=== PATIENT | male | born 1960 | race Caucasian/White ===

== ENCOUNTER 2017-12-06 12:35 | Inpatient (IN) | payer MEDICARE ==
[2017-12-06 13:40] LABS: ADD MAN DIFF? NO
[2017-12-06 13:43] LABS: BASO % 1 % (0-3); EOS # 0.4 x10^3/uL (0.0-0.7); EOS % 6 % (0-3); HEMATOCRIT 28.7 % (39.0-53.0); HEMOGLOBIN 9.1 g/dL (13.0-17.5); LYMPH # 1.7 x10^3/uL (1.0-4.8); LYMPH % 27 % (24-48); MEAN CORPUSCULAR HEMOGLOBIN 24 pg (25-35); MEAN CORPUSCULAR HGB CONC 32 g/dL (31-37); MEAN CORPUSCULAR VOLUME 74 fL (79-100); MONO # 0.6 x10^3/uL (0.0-1.1); MONO % 10 % (0-9); NEUT # 3.8 x10^3uL (1.8-7.7); NEUT % 58 % (31-73); PLATELET COUNT 423 x10^3/uL (140-400); RED BLOOD COUNT 3.87 x10^6/uL (4.30-5.70); RED CELL DISTRIBUTION WIDTH 20.8 % (11.5-14.5); WHITE BLOOD COUNT 6.6 x10^3/uL (4.0-11.0)
[2017-12-06] MEDS ORDERED: 0.9 % SODIUM CHLORIDE 10 ML DISP.SYRIN. IV (13:45)
[2017-12-06 13:50] LABS: ANION GAP 6 (6-14); BLOOD UREA NITROGEN 17 mg/dL (8-26); CALCIUM 8.8 mg/dL (8.5-10.1); CARBON DIOXIDE 29 mmol/L (21-32); CHLORIDE 105 mmol/L (98-107); CREATININE 0.5 mg/dL (0.7-1.3); GFR 170.8; GLUCOSE 90 mg/dL (70-99); POTASSIUM 4.3 mmol/L (3.5-5.1); SODIUM 140 mmol/L (136-145)
[2017-12-06 13:56] LABS: ALBUMIN 2.6 g/dL (3.4-5.0); ALK PHOS 91 U/L (46-116); ALT (SGPT) 10 U/L (16-63); AST (SGOT) 22 U/L (15-37); C-REACTIVE PROTEIN 51.3 mg/L (0-3.3); DIRECT BILIRUBIN < 0.1 mg/dL (0.0-0.2); TOTAL BILIRUBIN 0.2 mg/dL (0.2-1.0); TOTAL PROTEIN 7.5 g/dL (6.4-8.2)
[2017-12-06] MEDS: IV NORMAL SALINE 1000ML BAG 1,000 ML IV ×2 (14:06→18:18)
[2017-12-06] MEDS: ONDANSETRON PF 4 MG/2 ML VIAL. IV (14:07)
[2017-12-06] MEDS: MORPHINE SULFATE 4 MG/ML DISP.SYRIN. IV/SQ ×2 (14:07→17:02)
[2017-12-06] MEDS: VANCOMYCIN 1GM IVPB FOR OMNI 250 ML IV (14:08)
[2017-12-06 15:02] LABS: SEDIMENTATION RATE 75 (0-15)
[2017-12-06] MEDS ORDERED: ONDANSETRON PF 4 MG/2 ML VIAL. IV (15:30)
[2017-12-06 16:47] LABS: PLT ESTIMATE ADEQUATE (ADEQUATE)
[2017-12-06 16:48] LABS: ANISOCYTOSIS MOD; HYPOCHROMIA MOD; MICROCYTOSIS MOD
[2017-12-06] MEDS: MORPHINE SULFATE 4 MG/ML DISP.SYRIN. IV ×2 (19:09→21:07)
[2017-12-06] MEDS ORDERED: SENNOSIDES 8.6 MG TABLET PO (22:00)
[2017-12-06] MEDS: TEMAZEPAM 15 MG CAPSULE PO (22:00)
[2017-12-06] MEDS: GABAPENTIN 400 MG CAPSULE. PO (22:13)
[2017-12-06] MEDS: MORPHINE ER 15 MG TABLET.ER PO (22:14)
[2017-12-06] MEDS: QUEtiapine 100 MG TABLET. PO (22:14)
[2017-12-06] MEDS: fentaNYL 100MCG/HR PATCH 1 PATCH PATCH TD (22:14)
[2017-12-06] MEDS: CYCLOBENZAPRINE 10 MG TABLET. PO (22:14)
[2017-12-06] MEDS: ATORVASTATIN CALCIUM 20 MG TABLET PO (22:14)
[2017-12-07] MEDS: MORPHINE SULFATE 4 MG/ML DISP.SYRIN. IV ×5 (00:13→13:58)
[2017-12-07] MEDS: IV NORMAL SALINE 1000ML BAG 1,000 ML IV ×2 (01:18→14:40)
[2017-12-07] MEDS: PANTOPRAZOLE 40 MG TABLET.DR. PO (07:58)
[2017-12-07] MEDS: VANCOMYCIN PER PHARMACY MC (08:52)
[2017-12-07] MEDS: TAMSULOSIN 0.4 MG CAP.ER.24H. PO (08:56)
[2017-12-07] MEDS: DULoxetine HCL 30 MG CAPSULE.DR PO (08:57)
[2017-12-07] MEDS: amLODIPine BESYLATE 5 MG TABLET PO (08:57)
[2017-12-07] MEDS: PRAMIPEXOLE 0.25 MG TABLET. PO (08:57)
[2017-12-07] MEDS: POTASSIUM CHLORIDE 10 MEQ TABLET.ER. PO (08:58)
[2017-12-07] MEDS: FUROSEMIDE 80 MG TABLET. PO ×2 (08:58→13:56)
[2017-12-07] MEDS: GABAPENTIN 400 MG CAPSULE. PO ×3 (08:58→20:44)
[2017-12-07] MEDS: CYCLOBENZAPRINE 10 MG TABLET. PO ×3 (08:58→20:44)
[2017-12-07] MEDS: FERROUS SULFATE 325 MG TABLET. PO (08:59)
[2017-12-07] MEDS: MORPHINE ER 15 MG TABLET.ER PO ×2 (08:59→20:43)
[2017-12-07] MEDS: DIVALPROEX EXTENDED RELEASE 500 MG TAB.ER.24H. PO (08:59)
[2017-12-07] MEDS: VANCOMYCIN 1.25 GM in IV DEXTROSE 5 %-0.2 % NACL 250 ML IV (09:00)
[2017-12-07] MEDS: ATORVASTATIN CALCIUM 20 MG TABLET PO (20:43)
[2017-12-07] MEDS: QUEtiapine 100 MG TABLET. PO (20:44)
[2017-12-07] MEDS: TEMAZEPAM 15 MG CAPSULE PO (20:44)
[2017-12-08] MEDS: DULoxetine HCL 30 MG CAPSULE.DR PO (08:32)
[2017-12-08] MEDS: POTASSIUM CHLORIDE 10 MEQ TABLET.ER. PO (08:32)
[2017-12-08] MEDS: FERROUS SULFATE 325 MG TABLET. PO (08:32)
[2017-12-08] MEDS: TAMSULOSIN 0.4 MG CAP.ER.24H. PO (08:32)
[2017-12-08] MEDS: PRAMIPEXOLE 0.25 MG TABLET. PO (08:33)
[2017-12-08] MEDS: DIVALPROEX EXTENDED RELEASE 500 MG TAB.ER.24H. PO (08:33)
[2017-12-08] MEDS: CYCLOBENZAPRINE 10 MG TABLET. PO ×3 (08:33→20:44)
[2017-12-08] MEDS: GABAPENTIN 400 MG CAPSULE. PO ×3 (08:33→20:44)
[2017-12-08] MEDS: PANTOPRAZOLE 40 MG TABLET.DR. PO (08:33)
[2017-12-08] MEDS: MORPHINE ER 15 MG TABLET.ER PO ×2 (08:34→20:44)
[2017-12-08] MEDS: amLODIPine BESYLATE 5 MG TABLET PO (09:00)
[2017-12-08] MEDS: FUROSEMIDE 80 MG TABLET. PO ×2 (09:00→14:00)
[2017-12-08] MEDS: TEMAZEPAM 15 MG CAPSULE PO (20:43)
[2017-12-08] MEDS: ATORVASTATIN CALCIUM 20 MG TABLET PO (20:44)
[2017-12-08] MEDS: QUEtiapine 100 MG TABLET. PO (20:44)
[2017-12-09] MEDS: DULoxetine HCL 30 MG CAPSULE.DR PO (09:12)
[2017-12-09] MEDS: FERROUS SULFATE 325 MG TABLET. PO ×2 (09:12→09:13)
[2017-12-09] MEDS: FUROSEMIDE 80 MG TABLET. PO ×2 (09:12→15:20)
[2017-12-09] MEDS: PANTOPRAZOLE 40 MG TABLET.DR. PO ×2 (09:12→09:13)
[2017-12-09] MEDS: DIVALPROEX EXTENDED RELEASE 500 MG TAB.ER.24H. PO (09:14)
[2017-12-09] MEDS: TAMSULOSIN 0.4 MG CAP.ER.24H. PO (09:14)
[2017-12-09] MEDS: POTASSIUM CHLORIDE 10 MEQ TABLET.ER. PO (09:14)
[2017-12-09] MEDS: CYCLOBENZAPRINE 10 MG TABLET. PO ×3 (09:14→20:39)
[2017-12-09] MEDS: PRAMIPEXOLE 0.25 MG TABLET. PO (09:15)
[2017-12-09] MEDS: GABAPENTIN 400 MG CAPSULE. PO ×3 (09:15→20:41)
[2017-12-09] MEDS: MORPHINE ER 15 MG TABLET.ER PO ×2 (09:16→20:38)
[2017-12-09] MEDS: amLODIPine BESYLATE 5 MG TABLET PO (09:51)
[2017-12-09] MEDS: fentaNYL 100MCG/HR PATCH 1 PATCH PATCH TD (09:56)
[2017-12-09 12:15] LABS: ADD MAN DIFF? NO
[2017-12-09 12:36] LABS: BASO % 1 % (0-3); EOS # 0.3 x10^3/uL (0.0-0.7); EOS % 4 % (0-3); HEMATOCRIT 32.4 % (39.0-53.0); HEMOGLOBIN 10.2 g/dL (13.0-17.5); LYMPH # 1.7 x10^3/uL (1.0-4.8); LYMPH % 25 % (24-48); MEAN CORPUSCULAR HEMOGLOBIN 23 pg (25-35); MEAN CORPUSCULAR HGB CONC 31 g/dL (31-37); MEAN CORPUSCULAR VOLUME 74 fL (79-100); MONO # 0.6 x10^3/uL (0.0-1.1); MONO % 9 % (0-9); NEUT # 4.1 x10^3uL (1.8-7.7); NEUT % 61 % (31-73); PLATELET COUNT 451 x10^3/uL (140-400); RED BLOOD COUNT 4.38 x10^6/uL (4.30-5.70); RED CELL DISTRIBUTION WIDTH 20.4 % (11.5-14.5); WHITE BLOOD COUNT 6.7 x10^3/uL (4.0-11.0)
[2017-12-09 13:44] LABS: SEDIMENTATION RATE 60 (0-15)
[2017-12-09] MEDS: ATORVASTATIN CALCIUM 20 MG TABLET PO (20:38)
[2017-12-09] MEDS: TEMAZEPAM 15 MG CAPSULE PO (20:39)
[2017-12-09] MEDS: QUEtiapine 100 MG TABLET. PO (20:41)
[2017-12-10] MEDS: DULoxetine HCL 30 MG CAPSULE.DR PO (09:17)
[2017-12-10] MEDS: POTASSIUM CHLORIDE 10 MEQ TABLET.ER. PO (09:17)
[2017-12-10] MEDS: CYCLOBENZAPRINE 10 MG TABLET. PO ×3 (09:18→20:00)
[2017-12-10] MEDS: TAMSULOSIN 0.4 MG CAP.ER.24H. PO (09:18)
[2017-12-10] MEDS: DIVALPROEX EXTENDED RELEASE 500 MG TAB.ER.24H. PO (09:18)
[2017-12-10] MEDS: PRAMIPEXOLE 0.25 MG TABLET. PO (09:19)
[2017-12-10] MEDS: MORPHINE ER 15 MG TABLET.ER PO ×2 (09:20→19:59)
[2017-12-10] MEDS: GABAPENTIN 400 MG CAPSULE. PO ×3 (09:20→19:59)
[2017-12-10] MEDS: amLODIPine BESYLATE 5 MG TABLET PO (09:21)
[2017-12-10] MEDS: FUROSEMIDE 80 MG TABLET. PO ×2 (09:21→14:00)
[2017-12-10] MEDS: QUEtiapine 100 MG TABLET. PO (19:59)
[2017-12-10] MEDS: TEMAZEPAM 15 MG CAPSULE PO (19:59)
[2017-12-10] MEDS: ATORVASTATIN CALCIUM 20 MG TABLET PO (19:59)
[2017-12-10] MEDS: diphenhydrAMINE HCL 25 MG CAPSULE PO (20:00)
[2017-12-11] MEDS: TAMSULOSIN 0.4 MG CAP.ER.24H. PO (08:30)
[2017-12-11] MEDS: CYCLOBENZAPRINE 10 MG TABLET. PO ×3 (08:30→21:01)
[2017-12-11] MEDS: GABAPENTIN 400 MG CAPSULE. PO ×3 (08:30→21:01)
[2017-12-11] MEDS: POTASSIUM CHLORIDE 10 MEQ TABLET.ER. PO (08:30)
[2017-12-11] MEDS: PANTOPRAZOLE 40 MG TABLET.DR. PO (08:30)
[2017-12-11] MEDS: MORPHINE ER 15 MG TABLET.ER PO ×2 (08:31→21:02)
[2017-12-11] MEDS: DIVALPROEX EXTENDED RELEASE 500 MG TAB.ER.24H. PO (08:31)
[2017-12-11] MEDS: FERROUS SULFATE 325 MG TABLET. PO (08:31)
[2017-12-11] MEDS: FUROSEMIDE 80 MG TABLET. PO ×2 (08:31→13:23)
[2017-12-11] MEDS: DULoxetine HCL 30 MG CAPSULE.DR PO (08:31)
[2017-12-11] MEDS: amLODIPine BESYLATE 5 MG TABLET PO (08:32)
[2017-12-11] MEDS: PRAMIPEXOLE 0.25 MG TABLET. PO (08:32)
[2017-12-11] MEDS: BUTORPHANOL 2 MG/ML VIAL. IV (13:21)
[2017-12-11 13:38] LABS: POC GLUCOSE 106 mg/dL (70-99)
[2017-12-11] MEDS: diphenhydrAMINE 50 MG/ML VIAL IVP (13:50)
[2017-12-11 20:42] LABS: POC GLUCOSE 138 mg/dL (70-99)
[2017-12-11] MEDS: TEMAZEPAM 15 MG CAPSULE PO (21:00)
[2017-12-11] MEDS: QUEtiapine 100 MG TABLET. PO (21:01)
[2017-12-11] MEDS: ATORVASTATIN CALCIUM 20 MG TABLET PO (21:01)
[2017-12-12] MEDS: PRAMIPEXOLE 0.25 MG TABLET. PO (08:52)
[2017-12-12] MEDS: amLODIPine BESYLATE 5 MG TABLET PO (08:52)
[2017-12-12] MEDS: FUROSEMIDE 80 MG TABLET. PO ×2 (08:52→13:04)
[2017-12-12] MEDS: DIVALPROEX EXTENDED RELEASE 500 MG TAB.ER.24H. PO (08:53)
[2017-12-12] MEDS: FERROUS SULFATE 325 MG TABLET. PO (08:53)
[2017-12-12] MEDS: TAMSULOSIN 0.4 MG CAP.ER.24H. PO (08:53)
[2017-12-12] MEDS: POTASSIUM CHLORIDE 10 MEQ TABLET.ER. PO (08:53)
[2017-12-12] MEDS: GABAPENTIN 400 MG CAPSULE. PO ×3 (08:54→21:03)
[2017-12-12] MEDS: MORPHINE ER 15 MG TABLET.ER PO ×2 (08:55→21:03)
[2017-12-12] MEDS: PANTOPRAZOLE 40 MG TABLET.DR. PO (08:55)
[2017-12-12] MEDS: DULoxetine HCL 30 MG CAPSULE.DR PO (08:55)
[2017-12-12] MEDS: CYCLOBENZAPRINE 10 MG TABLET. PO ×3 (08:55→21:02)
[2017-12-12] MEDS: fentaNYL 100MCG/HR PATCH 1 PATCH PATCH TD (08:56)
[2017-12-12 15:03] LABS: ADD MAN DIFF? NO
[2017-12-12 15:05] LABS: BASO % 0 % (0-3); EOS # 0.1 x10^3/uL (0.0-0.7); EOS % 2 % (0-3); HEMATOCRIT 35.9 % (39.0-53.0); HEMOGLOBIN 11.2 g/dL (13.0-17.5); LYMPH # 1.5 x10^3/uL (1.0-4.8); LYMPH % 16 % (24-48); MEAN CORPUSCULAR HEMOGLOBIN 23 pg (25-35); MEAN CORPUSCULAR HGB CONC 31 g/dL (31-37); MEAN CORPUSCULAR VOLUME 74 fL (79-100); MONO # 0.9 x10^3/uL (0.0-1.1); MONO % 10 % (0-9); NEUT # 6.6 x10^3uL (1.8-7.7); NEUT % 72 % (31-73); PLATELET COUNT 407 x10^3/uL (140-400); RED BLOOD COUNT 4.86 x10^6/uL (4.30-5.70); RED CELL DISTRIBUTION WIDTH 21.3 % (11.5-14.5); WHITE BLOOD COUNT 9.2 x10^3/uL (4.0-11.0)
[2017-12-12 15:37] LABS: ALBUMIN 3.3 g/dL (3.4-5.0); ALBUMIN/GLOBULIN RATIO 0.6 (1.0-1.7); ALK PHOS 97 U/L (46-116); ALT (SGPT) 11 U/L (16-63); ANION GAP 7 (6-14); AST (SGOT) 29 U/L (15-37); BLOOD UREA NITROGEN 29 mg/dL (8-26); BUN/CREATININE RATIO 41 (6-20); CALCIUM 9.2 mg/dL (8.5-10.1); CARBON DIOXIDE 35 mmol/L (21-32); CHLORIDE 98 mmol/L (98-107); CREATININE 0.7 mg/dL (0.7-1.3); GFR 115.8; GLUCOSE 111 mg/dL (70-99); POTASSIUM 3.9 mmol/L (3.5-5.1); SODIUM 140 mmol/L (136-145); TOTAL BILIRUBIN 0.2 mg/dL (0.2-1.0); TOTAL PROTEIN 8.8 g/dL (6.4-8.2)
[2017-12-12] MEDS: QUEtiapine 100 MG TABLET. PO (21:04)
[2017-12-12] MEDS: TEMAZEPAM 15 MG CAPSULE PO (21:04)
[2017-12-12] MEDS: ATORVASTATIN CALCIUM 20 MG TABLET PO (21:04)
[2017-12-13] MEDS: amLODIPine BESYLATE 5 MG TABLET PO (09:00)
[2017-12-13] MEDS: FUROSEMIDE 80 MG TABLET. PO ×2 (09:23→15:23)
[2017-12-13] MEDS: DIVALPROEX EXTENDED RELEASE 500 MG TAB.ER.24H. PO (09:23)
[2017-12-13] MEDS: PRAMIPEXOLE 0.25 MG TABLET. PO (09:23)
[2017-12-13] MEDS: POTASSIUM CHLORIDE 10 MEQ TABLET.ER. PO (09:23)
[2017-12-13] MEDS: PANTOPRAZOLE 40 MG TABLET.DR. PO (09:24)
[2017-12-13] MEDS: TAMSULOSIN 0.4 MG CAP.ER.24H. PO (09:24)
[2017-12-13] MEDS: FERROUS SULFATE 325 MG TABLET. PO (09:24)
[2017-12-13] MEDS: DULoxetine HCL 30 MG CAPSULE.DR PO (09:24)
[2017-12-13] MEDS: MORPHINE ER 15 MG TABLET.ER PO ×2 (09:24→21:15)
[2017-12-13] MEDS: GABAPENTIN 400 MG CAPSULE. PO ×3 (09:24→21:16)
[2017-12-13] MEDS: CYCLOBENZAPRINE 10 MG TABLET. PO ×3 (09:24→21:16)
[2017-12-13] MEDS: ASCORBIC ACID 500 MG TABLET PO (15:23)
[2017-12-13] MEDS: MULTIVITAMIN with MINERAL TABLET. PO (15:23)
[2017-12-13] MEDS: TEMAZEPAM 15 MG CAPSULE PO (21:00)
[2017-12-13] MEDS: ATORVASTATIN CALCIUM 20 MG TABLET PO (21:16)
[2017-12-13] MEDS: QUEtiapine 100 MG TABLET. PO (21:16)
[2017-12-14] MEDS: POTASSIUM CHLORIDE 10 MEQ TABLET.ER. PO (08:33)
[2017-12-14] MEDS: GABAPENTIN 400 MG CAPSULE. PO ×2 (08:34→14:20)
[2017-12-14] MEDS: DIVALPROEX EXTENDED RELEASE 500 MG TAB.ER.24H. PO (08:34)
[2017-12-14] MEDS: PRAMIPEXOLE 0.25 MG TABLET. PO (08:35)
[2017-12-14] MEDS: ASCORBIC ACID 500 MG TABLET PO (08:35)
[2017-12-14] MEDS: PANTOPRAZOLE 40 MG TABLET.DR. PO (08:35)
[2017-12-14] MEDS: FUROSEMIDE 80 MG TABLET. PO ×3 (08:35→14:20)
[2017-12-14] MEDS: TAMSULOSIN 0.4 MG CAP.ER.24H. PO (08:35)
[2017-12-14] MEDS: DULoxetine HCL 30 MG CAPSULE.DR PO (08:35)
[2017-12-14] MEDS: FERROUS SULFATE 325 MG TABLET. PO (08:35)
[2017-12-14] MEDS: CYCLOBENZAPRINE 10 MG TABLET. PO ×2 (08:35→14:20)
[2017-12-14] MEDS: MULTIVITAMIN with MINERAL TABLET. PO (08:35)
[2017-12-14] MEDS: MORPHINE ER 15 MG TABLET.ER PO (08:37)
[2017-12-14] MEDS: amLODIPine BESYLATE 5 MG TABLET PO ×2 (08:39→09:00)
== END 2017-12-14 19:30 | disposition home or self-care (01) | DRG 592 ==
LOC: ER 12:35 → ED HOLD 15:20 → 5 NORTH 17:34
DX: L89.314 Pressure ulcer of right buttock, stage 4 (principal); E43 Unspecified severe protein-calorie malnutrition; G82.20 Paraplegia, unspecified; I11.0 Hypertensive heart disease with heart failure; M86.651 Other chronic osteomyelitis, right thigh; F11.20 Opioid dependence, uncomplicated; E11.69 Type 2 diabetes mellitus with other specified complication; F25.9 Schizoaffective disorder, unspecified; M46.28 Osteomyelitis of vertebra, sacral and sacrococcygeal region; I50.32 Chronic diastolic (congestive) heart failure; Z68.42 Body mass index [BMI] 45.0-49.9, adult; E78.5 Hyperlipidemia, unspecified; G89.4 Chronic pain syndrome; I25.10 Atherosclerotic heart disease of native coronary artery without angina pectoris; F32.9 Major depressive disorder, single episode, unspecified; K21.9 Gastro-esophageal reflux disease without esophagitis; K59.00 Constipation, unspecified; N40.0 Benign prostatic hyperplasia without lower urinary tract symptoms; Z59.0 Homelessness; Z76.5 Malingerer [conscious simulation]; Z82.49 Family history of ischemic heart disease and other diseases of the circulatory system; Z89.511 Acquired absence of right leg below knee; Z89.512 Acquired absence of left leg below knee; Z93.3 Colostomy status; Z95.1 Presence of aortocoronary bypass graft; Z86.14 Personal history of Methicillin resistant Staphylococcus aureus infection; Z88.8 Allergy status to other drugs, medicaments and biological substances
CPT/HCPCS: 36415; 80048; 80053; 80076; 82962; 83605; 85025; 85651; 86140; 87040; 87071; 87075; 87205; 96365; 96372; 96375; 97162-GP; 97166-GO; 97535-GO; 99285; 99285-25; J1200; J2060; J2270; J2405; J3370; J7030; Q0163

== ENCOUNTER 2020-05-15 12:29 | Inpatient (IN) | payer MEDICARE ==
[~2020-05-15] VITALS: Ht 121.9 cm; Wt 83.2 kg
[~2020-05-15 12:29] MED LIST: AMLO5TAB10 PO; ATOR20TA58 PO; BACL10TA PO; CHOL200044 PO; CYCL10TA2 PO; DIPH25TA24 PO; DIVA500T17 PO; DULO60CA45 PO; FENT1PAT21 TP; FERR325T14 PO; FURO80TA3 PO; GABA800T5 PO; GENT30CR TP; GUAI600T79 PO; HYDR4DIS IJ; LACT1CAP24 PO; MORP15TA80 PO; MORP30TA83 PO; MULT1CAP15 PO; OXYC30TA3 PO; PANT40TA77 PO; POTA10TA12 PO; POTA20TA84 PO; PRAM0.12 PO; QUET100T PO; SENN-87 PO; TAMS0.4C2 PO; TEMA30CA PO
[2020-05-15 14:53] LABS: BASO % 1 % (0-3); EOS # 0.1 x10^3/uL (0.0-0.7); EOS % 1 % (0-3); HEMATOCRIT 32.8 % (39.0-53.0); HEMOGLOBIN 10.9 g/dL (13.0-17.5); LYMPH # 2.4 x10^3/uL (1.0-4.8); LYMPH % 30 % (24-48); MEAN CORPUSCULAR HEMOGLOBIN 29 pg (25-35); MEAN CORPUSCULAR HGB CONC 33 g/dL (31-37); MEAN CORPUSCULAR VOLUME 87 fL (79-100); MONO # 1.4 x10^3/uL (0.0-1.1); MONO % 17 % (0-9); NEUT % 51 % (31-73); PLATELET COUNT 360 x10^3/uL (140-400); RED BLOOD COUNT 3.79 x10^6/uL (4.30-5.70); WHITE BLOOD COUNT 7.9 x10^3/uL (4.0-11.0)
[2020-05-15 14:58] LABS: ALBUMIN 2.5 g/dL (3.4-5.0); ALBUMIN/GLOBULIN RATIO 0.5 (1.0-1.7); CALCIUM 8.9 mg/dL (8.5-10.1); CREATININE 0.8 mg/dL (0.7-1.3); GFR 98.3; TOTAL BILIRUBIN 0.2 mg/dL (0.2-1.0); TOTAL PROTEIN 7.1 g/dL (6.4-8.2)
--- NOTE | 2020-05-15 15:50 | PHYS DOC ---
Past Medical History Past Medical History: Anemia, CAD, CHF, Constipation, Depression, Diabetes-Type II, GERD, High Cholesterol Additional Past Medical Histor: MRSA,candidiasis,schizoaffective disorder,BPH Past Surgical History: Other Additional Past Surgical Histo: colostomy, urostomy, LeftAKA, RightBKA, CABG Smoking Status: Current Some Day Smoker Alcohol Use: None Drug Use: None General Adult EDM: Chief Complaint: WOUND CHECK HPI: HPI: Patient is a 60 year old male, who is accompanied by his legal guardian, who presents to the emergency department with complaints of increasing erythema from decubitus ulcers noted on his right buttock. Patient states that he has been being treated by outpatient wound clinic for decubitus ulcers of his right buttock. He reports that the lateral ulcer has been present for over a year and has been more problematic over the last month. He reports that he developed another ulcer medial to the existing ulcer about 1 week ago and he has had increased redness around the sites even after treatment at wound care. Patient states that the wound care center is now concerned that he is developing a ulcer to his scrotum. He denies any fever, cough, shortness of breath, abdominal pain, chest pain, nausea, vomiting, diarrhea, or abdominal pain. The patient states that he was sent by his primary care doctor Dr. Coughlin for MRI today to rule out osteomyelitis. Patient states that he was unable to have the MRI done because he needed to be sedated. Patient states that they sent him to the ER so that he could be admitted. He denies any pain or complaints at this time. Review of Systems: Review of Systems: Constitutional: Denies fever or chills. [] HENT: Denies nasal congestion or sore throat. [] Respiratory: Denies cough or shortness of breath. [] Cardiovascular: Denies chest pain or edema. [] GI: Denies abdominal pain, nausea, vomiting, or diarrhea. [] Musculoskeletal: Denies back pain or joint pain. [] Integument: See HPI Neurologic: Denies headache Psychiatric: Denies depression or anxiety. [] Complete ROS is negative unless otherwise stated in the HPI. Heart Score: Risk Factors: Risk Factors: DM, Current or recent (<one month) smoker, HTN, HLP, family history of CAD, obesity. Risk Scores: Score 0 - 3: 2.5% MACE over next 6 weeks - Discharge Home Score 4 - 6: 20.3% MACE over next 6 weeks - Admit for Clinical Observation Score 7 - 10: 72.7% MACE over next 6 weeks - Early Invasive Strategies Allergies: Allergies: Allergies Coded Allergies Type Severity Reaction Last Updated Verified I S O L A T I O N *CONTACT* Allergy Unknown 02/25/15 Yes butorphanol Adverse Reaction Intermediate diaphoresis, anxiety 12/11/17 Yes Physical Exam: PE: Constitutional: Well developed, well nourished, no acute distress, non-toxic appearance. [] HENT: Normocephalic, atraumatic, bilateral external ears normal, nose normal. [] Eyes: PERRLA, EOMI, conjunctiva normal, no discharge. [] Neck: Normal range of motion, no stridor. [] Cardiovascular:Heart rate regular rhythm Lungs & Thorax: Respirations even and unlabored, no retractions, no respiratory distress Abdomen: soft, no tenderness Skin: Warm, dry; 2- stage IV ulcers noted to the patient's right buttock with surrounding erythema and warmth, dressing intact Extremities: Left BKA; right AKA, no cyanosis, ROM intact, no edema. [] Neurologic: Alert and oriented X 3, no focal deficits noted. [] Psychologic: Affect normal, judgement normal, mood normal. [] Current Patient Data: Labs: Laboratory Tests Test 05/15/20 13:55 White Blood Count 7.9 x10^3/uL (4.0-11.0) Red Blood Count 3.79 x10^6/uL (4.30-5.70) L Hemoglobin 10.9 g/dL (13.0-17.5) L Hematocrit 32.8 % (39.0-53.0) L Mean Corpuscular Volume 87 fL (79-100) Mean Corpuscular Hemoglobin 29 pg (25-35) Mean Corpuscular Hemoglobin Concent 33 g/dL (31-37) Red Cell Distribution Width 15.0 % (11.5-14.5) H Platelet Count 360 x10^3/uL (140-400) Neutrophils (%) (Auto) 51 % (31-73) Lymphocytes (%) (Auto) 30 % (24-48) Monocytes (%) (Auto) 17 % (0-9) H Eosinophils (%) (Auto) 1 % (0-3) Basophils (%) (Auto) 1 % (0-3) Neutrophils # (Auto) 4.0 x10^3/uL (1.8-7.7) Lymphocytes # (Auto) 2.4 x10^3/uL (1.0-4.8) Monocytes # (Auto) 1.4 x10^3/uL (0.0-1.1) H Eosinophils # (Auto) 0.1 x10^3/uL (0.0-0.7) Basophils # (Auto) 0.0 x10^3/uL (0.0-0.2) Sodium Level 140 mmol/L (136-145) Potassium Level 3.0 mmol/L (3.5-5.1) L Chloride Level 103 mmol/L (98-107) Carbon Dioxide Level 29 mmol/L (21-32) Anion Gap 8 (6-14) Blood Urea Nitrogen 12 mg/dL (8-26) Creatinine 0.8 mg/dL (0.7-1.3) Estimated GFR (Cockcroft-Gault) 98.3 BUN/Creatinine Ratio 15 (6-20) Glucose Level 86 mg/dL (70-99) Lactic Acid Level 1.0 mmol/L (0.4-2.0) Calcium Level 8.9 mg/dL (8.5-10.1) Total Bilirubin 0.2 mg/dL (0.2-1.0) Aspartate Amino Transferase (AST) 30 U/L (15-37) Alanine Aminotransferase (ALT) 12 U/L (16-63) L Alkaline Phosphatase 55 U/L (46-116) Total Protein 7.1 g/dL (6.4-8.2) Albumin 2.5 g/dL (3.4-5.0) L Albumin/Globulin Ratio 0.5 (1.0-1.7) L Laboratory Tests 05/15/20 13:55 Laboratory Tests 05/15/20 13:55 Vital Signs: Vital Signs Date Time Temp Pulse Resp B/P (MAP) Pulse Ox O2 Delivery O2 Flow Rate FiO2 05/15/20 13:42 96.9 82 18 99/52 (68) 95 Room Air 96.9 EKG: EKG: [] Radiology/Procedures: Radiology/Procedures: [] Course & Med Decision Making: Course & Med Decision Making Pertinent Labs and Imaging studies reviewed. (See chart for details) 60-year-old male presented to the emergency department for further evaluation of decubitus ulcers of the right buttock. CBC revealed a hemoglobin of 10.9 hematocrit of 32.8, and white blood cells of 3.79, otherwise unremarkable; feels a potassium of 3, C-reactive protein of 122.4, otherwise unremarkable patient's lactic acid was not elevated. 1522-spoke with Dr. Gonzales who will notify Dr. Vieyra of need for admission. Will consult infectious disease and surgery on admission orders. . Patient's vital signs stable. Patient remains afebrile, appears nontoxic, respirations even and unlabored. Patient will be admitted to the med/surg floor. Patient's case and plan of care also discussed with Dr. Palacios [] Sebastián Disclaimer: Sebastián Disclaimer: This electronic medical record was generated, in whole or in part, using a voice recognition dictation system. Departure Departure Impression: Primary Impression: Wound of right buttock Qualified Codes: S31.819A - Unspecified open wound of right buttock, initial encounter Additional Impression: Decubitus ulcer of right buttock, stage 4 Disposition: ADMITTED INPATIENT Admitting Physician: LOBITO (Azalia) Condition: STABLE Referrals: KOTA COUGHLIN MD (PCP) Justicifation of Admission Dx: Justifications for Admission: Justification of Admission Dx: Yes Sepsis: Failure of Out Pt Tx RENE EMERSON APRN May 15, 2020 15:50
[2020-05-15] MEDS ORDERED: ALBUTEROL SULFATE 2.5 MG/3 ML NEBU. NEB PRN (16:30)
[2020-05-15] MEDS ORDERED: ONDANSETRON PF 4 MG/2 ML VIAL. IV PRN (16:30)
[2020-05-15] MEDS ORDERED: VANCOMYCIN 1 GM in IV DEXTROSE 5% 250 ML IV ONE (16:30)
[2020-05-15] MEDS ORDERED: VANCOMYCIN 1.5 GM in IV NORMAL SALINE 500ML BAG 500 ML IV ONE (16:45)
[2020-05-15] MEDS: HYDROmorphone 2 MG/ML VIAL IV PRN ×3 (17:35→21:55)
[2020-05-15] MEDS: PIPERACILLIN/TAZOBACTAM 3.375 GM in IV NORMAL SALINE 50ML 50 ML IV SCH (18:00)
[2020-05-15] MEDS: VANCOMYCIN PER PHARMACY MC PRN (18:17)
--- NOTE | 2020-05-15 18:20 | NUR ---
Pharmacy Vancomycin Dosing Note S: Consulted to monitor and dose vancomycin started 05/15/20. O: DULCE KNIGHT is a 60 year old M with DIABETIC WOUND . Other Antibiotics: ZOSYN LABS: Last BUN: 12 Last Creatinine: 0.8 Creatinine Clearance: 85 mL/min Last WBC: 7.9 Vancomycin Dosing: Dosing Weight: Actual Target Trough: 10-20 A: Based on: VANCO dosing guidelines P: 1. Begin Vancomycin 1500mg LOAD dose, then 1000 mg IV q12h 2. Follow up Trough level on 05/17/20 at 0430 3. Pharmacy will continue to monitor, follow and adjust therapy as needed. CHANDU NG RPH, 05/15/20 [id number]
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
[2020-05-15] MEDS: POTASSIUM CHLORIDE 20 MEQ TABLET.ER. PO SCH ×3 (18:53→21:42)
[2020-05-15 20:00] VITALS: BP 104/77
[2020-05-15] MEDS: CYCLOBENZAPRINE 10 MG TABLET. PO SCH (21:41)
[2020-05-15] MEDS: ATORVASTATIN CALCIUM 20 MG TABLET PO SCH (21:41)
[2020-05-15] MEDS: PRAMIPEXOLE 0.25 MG TABLET. PO SCH (21:41)
[2020-05-15] MEDS: GABAPENTIN 400 MG CAPSULE. PO SCH (21:42)
[2020-05-15] MEDS: FUROSEMIDE 80 MG TABLET. PO SCH (21:42)
[2020-05-15] MEDS: TEMAZEPAM 15 MG CAPSULE PO SCH (21:43)
[2020-05-15] MEDS: MORPHINE ER 15 MG TABLET.ER PO SCH (21:43)
[2020-05-15] MEDS: ENOXAPARIN 40 MG/0.4 ML SYRINGE. SQ SCH (21:43)
[2020-05-15] MEDS: QUEtiapine 100 MG TABLET. PO SCH (21:43)
[2020-05-15 22:56] VITALS: BP 85/46
[2020-05-16] VITALS (7 sets, daily range): BP systolic 93–173; BP diastolic 54–79
[2020-05-16] MEDS: PIPERACILLIN/TAZOBACTAM 3.375 GM in IV NORMAL SALINE 50ML 50 ML IV SCH ×2 (01:03→05:43)
[2020-05-16] MEDS: VANCOMYCIN 1 GM in IV NORMAL SALINE 250ML 250 ML IV SCH ×2 (04:38→18:43)
[2020-05-16] MEDS ORDERED: POTASSIUM CHLORIDE 10MEQ 100 ML IV PRN (08:00)
[2020-05-16] MEDS ORDERED: POTASSIUM CHLORIDE 20 MEQ TABLET.ER. PO PRN (08:00)
[2020-05-16] MEDS ORDERED: MAGNESIUM SULFATE 2GM 50 ML IV PRN (08:00)
--- NOTE | 2020-05-16 08:00 | PDOC ---
Infectious Disease Note Vital Sign Vital Signs Vital Signs Date Time Temp Pulse Resp B/P (MAP) Pulse Ox O2 Delivery O2 Flow Rate FiO2 05/16/20 03:31 97.5 66 18 93/54 (67) 95 Room Air 97.5 05/15/20 23:00 2.0 Labs Lab Laboratory Tests Test 05/15/20 13:55 White Blood Count 7.9 x10^3/uL (4.0-11.0) Red Blood Count 3.79 x10^6/uL (4.30-5.70) Hemoglobin 10.9 g/dL (13.0-17.5) Hematocrit 32.8 % (39.0-53.0) Mean Corpuscular Volume 87 fL (79-100) Mean Corpuscular Hemoglobin 29 pg (25-35) Mean Corpuscular Hemoglobin Concent 33 g/dL (31-37) Red Cell Distribution Width 15.0 % (11.5-14.5) Platelet Count 360 x10^3/uL (140-400) Neutrophils (%) (Auto) 51 % (31-73) Lymphocytes (%) (Auto) 30 % (24-48) Monocytes (%) (Auto) 17 % (0-9) Eosinophils (%) (Auto) 1 % (0-3) Basophils (%) (Auto) 1 % (0-3) Neutrophils # (Auto) 4.0 x10^3/uL (1.8-7.7) Lymphocytes # (Auto) 2.4 x10^3/uL (1.0-4.8) Monocytes # (Auto) 1.4 x10^3/uL (0.0-1.1) Eosinophils # (Auto) 0.1 x10^3/uL (0.0-0.7) Basophils # (Auto) 0.0 x10^3/uL (0.0-0.2) Sodium Level 140 mmol/L (136-145) Potassium Level 3.0 mmol/L (3.5-5.1) Chloride Level 103 mmol/L (98-107) Carbon Dioxide Level 29 mmol/L (21-32) Anion Gap 8 (6-14) Blood Urea Nitrogen 12 mg/dL (8-26) Creatinine 0.8 mg/dL (0.7-1.3) Estimated GFR (Cockcroft-Gault) 98.3 BUN/Creatinine Ratio 15 (6-20) Glucose Level 86 mg/dL (70-99) Lactic Acid Level 1.0 mmol/L (0.4-2.0) Calcium Level 8.9 mg/dL (8.5-10.1) Total Bilirubin 0.2 mg/dL (0.2-1.0) Aspartate Amino Transf (AST/SGOT) 30 U/L (15-37) Alanine Aminotransferase (ALT/SGPT) 12 U/L (16-63) Alkaline Phosphatase 55 U/L (46-116) C-Reactive Protein, Quantitative 122.4 mg/L (0-3.3) Total Protein 7.1 g/dL (6.4-8.2) Albumin 2.5 g/dL (3.4-5.0) Albumin/Globulin Ratio 0.5 (1.0-1.7) Objective Assessment Buttock wound - chronic H/o Acinetobacter Schizophrenia CAD L eye echymosis - denies know injury - vision ok Plan Plan of Care Cont Vanc D/c Zosyn and begin Meroepenem F/u MRI/labs and cults Thank you # [id number] MOHINI BENZ MD May 16, 2020 08:00
[2020-05-16] MEDS ORDERED: MAGNESIUM OXIDE 400 MG TABLET PO PRN (09:00)
[2020-05-16] MEDS: CYCLOBENZAPRINE 10 MG TABLET. PO SCH ×3 (09:16→20:56)
[2020-05-16] MEDS: GABAPENTIN 400 MG CAPSULE. PO SCH ×3 (09:17→20:56)
[2020-05-16] MEDS: POTASSIUM CHLORIDE 10 MEQ TABLET.ER. PO SCH (09:17)
[2020-05-16] MEDS: TAMSULOSIN 0.4 MG CAP.ER.24H. PO SCH (09:17)
[2020-05-16] MEDS: FERROUS SULFATE 325 MG TABLET. PO SCH (09:17)
[2020-05-16] MEDS: DIVALPROEX EXTENDED RELEASE 500 MG TAB.ER.24H. PO SCH (09:17)
[2020-05-16] MEDS: SENNOSIDES 8.6 MG TABLET PO SCH (09:18)
[2020-05-16] MEDS: PANTOPRAZOLE 40 MG TABLET.DR. PO SCH (09:18)
[2020-05-16] MEDS: FUROSEMIDE 80 MG TABLET. PO SCH ×2 (09:18→20:56)
[2020-05-16] MEDS: MORPHINE ER 15 MG TABLET.ER PO SCH ×2 (09:18→20:57)
[2020-05-16] MEDS: amLODIPine BESYLATE 5 MG TABLET PO SCH (09:19)
[2020-05-16] MEDS: DULoxetine HCL 30 MG CAPSULE.DR PO SCH (09:20)
[2020-05-16] MEDS: POTASSIUM CHLORIDE 10MEQ 100 ML IV SCH ×4 (09:21→15:44)
--- NOTE | 2020-05-16 09:25 | CONS ---
DATE OF CONSULTATION: 05/16/2020 INFECTIOUS DISEASE CONSULTATION NOTE LOCATION: The patient's room is 426. REQUESTING PHYSICIAN: Victor Hugo Vieyra MD REASON FOR CONSULTATION: Buttock wound. HISTORY OF PRESENT ILLNESS: The patient is a 60-year-old gentleman who has a history of previous buttock osteomyelitis with wounds for several years. He has been followed in [facility] and was brought to [facility] and was going to have an MRI performed. However, he developed contractures and was immediately unable to get into the machine, so he was admitted to have anesthesia and sedation. He was placed on vancomycin and Zosyn. Currently, he is lying in bed. He has pains at times range up between 7 and 10, but currently no fevers, chills, or sweats. Denies any nausea or vomiting. Denies any rashes. PAST MEDICAL HISTORY: Positive for chronic wounds with previous osteomyelitis of his ischial areas and going back at least 4+ years, he has schizoaffective disorder, neuromuscular dysfunction with the suprapubic catheter, hypertension, hyperlipidemia, coronary artery disease, Acinetobacter. PAST SURGICAL HISTORY: Positive for bilateral lower extremity amputations, coronary artery bypass grafting and previous I and D of the wound. REVIEW OF SYSTEMS: Otherwise negative. ALLERGIES: No known drug allergies. SOCIAL HISTORY: He is a [place] resident. No recent tobacco or alcohol. FAMILY HISTORY: Noncontributory. CURRENT MEDICATIONS: Include vancomycin, Zosyn, albuterol, Norvasc, Lipitor, Flexeril, Benadryl, Cymbalta, FeroSul, Lasix, Neurontin, Mucinex, Dilaudid, Ativan, Protonix, Mirapex, Flomax, senna. PHYSICAL EXAMINATION: VITAL SIGNS: Temperature 98, pulse 74, respirations 18, blood pressure 101/66, satting 93%. CONSTITUTIONAL: He is lying in bed. He is cooperative. He is in no acute distress. HEENT: His pupils are equal and reactive. He has got some ecchymosis about his left eye. Oral cavity, pharynx was clear. NECK: Supple, no JVD. LUNGS: Decreased in the bases. HEART: S1, S2. ABDOMEN: Soft, nontender, no guarding, no rebound. He has an ostomy with a stomal hernia. Suprapubic catheter is in place. EXTREMITIES: He has bilateral lower extremity amputations. SKIN: Warm to touch without generalized signs of rash. NEUROLOGIC: He answers questions and moves his extremities. PSYCHIATRIC: Affect is flat. LABORATORY VALUES: White count 7.9, hemoglobin 10.9, platelets of 360, neutrophils 51, lymphs are 30. Creatinine is 0.8, glucose of 86, AST 30, ALT 12, alkaline phosphatase 55. CRP of 122.4. There are no cultures, although he does have his culture in 12/2017 for Klebsiella resistant to ampicillin, intermediate to piperacillin and an Acinetobacter that was resistant to piperacillin, tetracycline, Bactrim, levofloxacin, ceftriaxone. X-ray of the coccyx on the 3rd showed large formed stool. No definitive radiographic evidence of osteomyelitis. IMPRESSION: 1. Buttock wound is chronic in nature. 2. History of Acinetobacter. 3. Schizophrenia. 4. Coronary artery disease. 5. Left eye ecchymosis. Denies known injury. Vision is okay. RECOMMENDATIONS: We will continue the vancomycin, discontinue Zosyn, begin meropenem. Followup MRI, labs and cultures. Thank you for allowing me to see and participate in the patient's care. Should you have any questions, please do not hesitate to contact me. MOHINI BENZ MD DR: ALINA/jose JOB#: [id number] / [id number]
[2020-05-16] MEDS: HYDROmorphone 2 MG/ML VIAL IV PRN ×7 (09:38→23:03)
[2020-05-16 10:09] LABS: CALCIUM 8.3 mg/dL (8.5-10.1); CREATININE 0.6 mg/dL (0.7-1.3); MAGNESIUM 2.3 mg/dL (1.8-2.4); POTASSIUM 3.5 mmol/L (3.5-5.1)
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
[2020-05-16] MEDS: VANCOMYCIN PER PHARMACY MC PRN (11:24)
[2020-05-16] MEDS: MEROPENEM 500 MG in IV NORMAL SALINE 50ML 50 ML IV SCH ×2 (12:00→20:04)
--- NOTE | 2020-05-16 14:01 | RAD ---
CT HEAD AND MAXILLOFACIAL WO dated 05/16/2020 11:09 AM Indication:Pain..Reason: left orbital ecchymoses / Spl. Instructions: / History: . Comparison: No comparison is available. Technique: Contiguous axial imaging the head was performed from skull base to vertex. In addition, axial imaging the maxillofacial bones obtained with thin cut coronal and sagittal reconstruction. One or more of the following individualized dose reduction techniques were utilized for this examination: 1. Automated exposure control 2. Adjustment of the mA and/or kV according to patient size 3. Use of iterative reconstruction technique Findings: Ventricles and sulci are mildly prominent for age. No midline shift or mass effect. Mild patchy low density in the deep/subcortical periventricular white matter. No hemorrhage or extra axial collection. Posterior fossa and brainstem unremarkable. There is mild asymmetric preseptal soft tissue swelling over the left orbit. No post septal edema. The globes are symmetric. Orbital ferrell and maxillary ferrell are intact. No evidence of fracture. Minimal mucosal thickening of the bilateral maxillary sinus and bilateral ethmoid air cells. The mastoid air cells are clear. No significant soft tissue abnormality. There are borderline enlarged bilateral cervical chain lymph nodes, nonspecific. Spondylotic changes of the cervical spine. IMPRESSION: 1. No evidence of acute intracranial hemorrhage or mass. 2. Mild chronic small vessel ischemic changes and atrophy. 3. Mild preseptal soft tissue swelling over the left orbit with no evidence of underlying acute bony abnormality. 4. Mild sinus disease. Electronically signed by: Ron Grande MD (05/16/2020 1:58 PM) [id number]
--- NOTE | 2020-05-16 14:06 | RAD ---
EXAM: CT ABDOMEN/PELVIS WITHOUT CONTRAST. HISTORY: Malfunctioning ostomy. TECHNIQUE: Computed tomography of the abdomen and pelvis was performed without intravenous contrast. One or more of the following individualized dose reduction techniques were utilized for this examination: 1. Automated exposure control. 2. Adjustment of the mA and/or kV according to patient size. 3. Use of iterative reconstruction technique. COMPARISON: None. FINDINGS: Lung windows through the visualized portions of the bases reveal interstitial opacities in the left greater than right bases. These are consistent with accommodation of atelectasis along with mild pulmonary edema or interstitial lung disease. Coronary atherosclerotic calcifications are noted. Bone windows reveal instrumented anterior and posterior fusion from L2 through S1 with L3 and L4 corpectomies. There are bulky calcifications throughout the central canal, ablating or replacing the thecal sac. Changes of internal fixation of a right proximal femoral fracture are noted. A packed ulcer along the undersurface of the right hip/buttock measures 5 cm across and 5 cm deep. It does not appear to extend to the bone and there is no clear evidence of osteomyelitis along the femur. Another right ischial decubitus ulcer extends to the bowel which is sclerotic and partially resorbed, consistent with chronic osteomyelitis. An ostomy is noted along the left lower quadrant. A large parastomal hernia contains the distal colon and multiple nonobstructed small bowel loops. There appears to be inflammatory change along the superficial aspect of the exposed intra-abdominal fat. There is no clear associated fluid collection. The colostomy appears to be a loop without a Samuel's pouch. The amount of stool is not abnormally increased. There is no evidence of small bowel obstruction. The liver, gallbladder, pancreas, adrenal glands and spleen are unremarkable. A cyst posteriorly in the right kidney measures 3.1 x 2.0 cm and may represent 2 adjacent cysts. Another in the left kidney measures 2.6 cm. 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 Calcifications along the left renal sinus are likely atherosclerotic. No clear calculi are seen. There is no hydronephrosis. The bladder is decompressed by a suprapubic catheter. IMPRESSION: 1. Large left lower quadrant parastomal hernia containing the descending colon and multiple nonobstructed small bowel loops. Soft tissue thickening along the superficial aspect of the included abdominal fat suggests inflammatory change. There is no associated fluid collection. 2. A deep right ischial decubitus ulcer extends to the bone with evidence of acute on chronic osteomyelitis. 3. Another deep ulcer overlying the right greater trochanter is not clearly associated with osteomyelitis by CT. 4. Mild pulmonary edema or atypical pneumonia versus interstitial lung disease in the bases. Electronically signed by: Ajay Davison MD (05/16/2020 2:03 PM) [facility]
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
[2020-05-16] MEDS ORDERED: LOPERAMIDE 2 MG CAPSULE PO PRN (20:45)
[2020-05-16] MEDS: ATORVASTATIN CALCIUM 20 MG TABLET PO SCH (20:56)
[2020-05-16] MEDS: LACTOBACILLUS RHAMNOSUS GG 1 CAPSULE. PO SCH (20:56)
[2020-05-16] MEDS: TEMAZEPAM 15 MG CAPSULE PO SCH (20:56)
[2020-05-16] MEDS: diphenhydrAMINE HCL 25 MG CAPSULE PO PRN (20:56)
[2020-05-16] MEDS: LORazepam 0.5 MG TABLET PO PRN (20:56)
[2020-05-16] MEDS: PRAMIPEXOLE 0.25 MG TABLET. PO SCH (20:57)
[2020-05-16] MEDS: QUEtiapine 100 MG TABLET. PO SCH (20:57)
[2020-05-16] MEDS: ENOXAPARIN 40 MG/0.4 ML SYRINGE. SQ SCH (21:02)
[2020-05-16] MEDS: NYSTATIN TOPICAL POWDER 15GM BOTTLE. TP SCH (21:11)
[2020-05-17] MEDS: MEROPENEM 500 MG in IV NORMAL SALINE 50ML 50 ML IV SCH ×4 (00:59→18:03)
[2020-05-17 03:00] VITALS: BP 108/61
[2020-05-17 04:19] LABS: VANC TR 15.4 mcg/mL (10.0-20.0)
[2020-05-17] MEDS: VANCOMYCIN 1 GM in IV NORMAL SALINE 250ML 250 ML IV SCH ×2 (04:47→17:15)
[2020-05-17] MEDS: VANCOMYCIN PER PHARMACY MC PRN (04:47)
--- NOTE | 2020-05-17 04:47 | NUR ---
Pharmacy Vancomycin Dosing Note S:Consulted to monitor and dose vancomycin started 05/15/20. O:DULCE KNIGHT is a 60 year old M with DIABETIC WOUND . Height: 4 feet, 0 inches Weight: 83.2 kg Eva Body Weight: 22.40 Adjusted Body Weight: 46.72 Dosing Weight: Actual Other Antibiotics: [facility] LABS: Last BUN: 9 Last Creatinine: 0.6 Creatinine Clearance: 115 mL/min Last WBC: 7.9 Last Procalcitonin: -- Tmax (past 24 hours): 98 Microbiology: 05/15: blood cx pending I/O: 590 / 1725 Drug Levels: Last Trough level: 15.4 on 05/17/20 at 0430 Last dose given 05/16/20 at 0438 Vancomycin Dosing: Loading Dose: 1500 mg x1 Dosing Weight: Actual Target Trough: 10-20 A: Based on: TROUGH P: 1. Continue Vancomycin 1000 mg IV q12h 2. Follow up Trough level IF NEEDED 3. Pharmacy will continue to monitor, follow and adjust therapy as needed. MAHIN GAMBOA RPH, 05/17/20 [id number] Signed: 05/17/20 at 0448 by MAHIN GAMBOA RPH PHA
[2020-05-17] MEDS: HYDROmorphone 2 MG/ML VIAL IV PRN ×8 (05:00→22:15)
[2020-05-17 07:00] VITALS: BP 100/60
[2020-05-17] MEDS: PANTOPRAZOLE 40 MG TABLET.DR. PO SCH (07:16)
--- NOTE | 2020-05-17 08:19 | PDOC ---
Infectious Disease Note Subjective Subjective Doing ok but ? if bed is working No F\c\s\rash ROS ROS o/w neg Vital Sign Vital Signs Vital Signs Date Time Temp Pulse Resp B/P (MAP) Pulse Ox O2 Delivery O2 Flow Rate FiO2 05/17/20 07:19 20 Room Air 05/17/20 07:00 98.7 81 100/60 (73) 93 98.7 05/16/20 21:25 2.0 Physical Exam PHYSICAL EXAM CONSTITUTIONAL: He is lying in bed. He is cooperative. He is in no acute distress. HEENT: His pupils are equal and reactive. He has got some ecchymosis about his left eye. Oral cavity, pharynx was clear. NECK: Supple, no JVD. LUNGS: Decreased in the bases. HEART: S1, S2. ABDOMEN: Soft, nontender, no guarding, no rebound. He has an ostomy with a stomal hernia. Suprapubic catheter is in place. EXTREMITIES: He has bilateral lower extremity amputations. SKIN: Warm to touch without generalized signs of rash. NEUROLOGIC: He answers questions and moves his extremities. PSYCHIATRIC: Affect is flat. Labs Lab Laboratory Tests Test 05/16/20 09:15 05/17/20 03:55 Sodium Level 144 mmol/L (136-145) Potassium Level 3.5 mmol/L (3.5-5.1) Chloride Level 107 mmol/L (98-107) Carbon Dioxide Level 32 mmol/L (21-32) Anion Gap 5 (6-14) Blood Urea Nitrogen 9 mg/dL (8-26) Creatinine 0.6 mg/dL (0.7-1.3) Estimated GFR (Cockcroft-Gault) 137.0 Glucose Level 87 mg/dL (70-99) Calcium Level 8.3 mg/dL (8.5-10.1) Magnesium Level 2.3 mg/dL (1.8-2.4) Vancomycin Level Trough 15.4 mcg/mL (10.0-20.0) Vancomycin Last Dose Date Vancomycin Last Dose Time 1700 Micro IMPRESSION: 1. Large left lower quadrant parastomal hernia containing the descending colon and multiple nonobstructed small bowel loops. Soft tissue thickening along the superficial aspect of the included abdominal fat suggests inflammatory change. There is no associated fluid collection. 2. A deep right ischial decubitus ulcer extends to the bone with evidence of acute on chronic osteomyelitis. 3. Another deep ulcer overlying the right greater trochanter is not clearly associated with osteomyelitis by CT. 4. Mild pulmonary edema or atypical pneumonia versus interstitial lung disease in the bases. IMPRESSION: 1. No evidence of acute intracranial hemorrhage or mass. 2. Mild chronic small vessel ischemic changes and atrophy. 3. Mild preseptal soft tissue swelling over the left orbit with no evidence of underlying acute bony abnormality. 4. Mild sinus disease Microbiology 05/16/20 Blood Culture - Preliminary, Resulted NO GROWTH AFTER 1 DAY Objective Assessment Buttock wound - chronic H/o Acinetobacter Schizophrenia CAD L eye echymosis - denies know injury - vision ok Plan Plan of Care Cont Vanc D/c Zosyn and begin Meroepenem 05/16 F/u MRI/labs and cults Await surgical f\u D/w nursing MOHINI BENZ MD May 17, 2020 08:19
[2020-05-17] MEDS: NYSTATIN TOPICAL POWDER 15GM BOTTLE. TP SCH ×2 (09:00→21:09)
[2020-05-17] MEDS: SENNOSIDES 8.6 MG TABLET PO SCH (09:16)
[2020-05-17] MEDS: TAMSULOSIN 0.4 MG CAP.ER.24H. PO SCH (09:16)
[2020-05-17] MEDS: FUROSEMIDE 80 MG TABLET. PO SCH ×2 (09:16→21:03)
[2020-05-17] MEDS: GABAPENTIN 400 MG CAPSULE. PO SCH ×3 (09:16→21:03)
[2020-05-17] MEDS: CYCLOBENZAPRINE 10 MG TABLET. PO SCH ×3 (09:16→21:03)
[2020-05-17] MEDS: POTASSIUM CHLORIDE 10 MEQ TABLET.ER. PO SCH (09:17)
[2020-05-17] MEDS: LACTOBACILLUS RHAMNOSUS GG 1 CAPSULE. PO SCH ×2 (09:17→21:03)
[2020-05-17] MEDS: FERROUS SULFATE 325 MG TABLET. PO SCH (09:17)
[2020-05-17] MEDS: DULoxetine HCL 30 MG CAPSULE.DR PO SCH (09:17)
[2020-05-17] MEDS: amLODIPine BESYLATE 5 MG TABLET PO SCH (09:17)
[2020-05-17] MEDS: MORPHINE ER 15 MG TABLET.ER PO SCH ×2 (09:18→21:04)
[2020-05-17] MEDS: DIVALPROEX EXTENDED RELEASE 500 MG TAB.ER.24H. PO SCH (09:18)
[2020-05-17 10:24] VITALS: BP 113/70
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
[2020-05-17 14:31] VITALS: BP 127/99
[2020-05-17 19:00] VITALS: BP 101/64
--- NOTE | 2020-05-17 20:02 | PDOC ---
SURGICAL PROGRESS NOTE DATE: 05/17/20 TIME: 19:54 Subjective Pt with c/o discomfort at prolapsed colostomy Vital Signs Vital Signs Date Time Temp Pulse Resp B/P (MAP) Pulse Ox O2 Delivery O2 Flow Rate FiO2 05/17/20 18:45 20 Room Air 05/17/20 18:03 94 2.0 05/17/20 14:31 99.6 71 127/99 (108) 99.6 I&O Intake and Output 05/17/20 07:00 Intake Total 1430 ml Output Total 1600 ml Balance -170 ml Intake Oral 1190 ml Other 240 ml Output Urine Total 1600 ml General: Alert, No acute distress Abdomen: Soft, No tenderness, Other (prolapsed viable colostomy) Labs Laboratory Tests Test 05/16/20 09:15 05/17/20 03:55 Sodium Level 144 mmol/L (136-145) Potassium Level 3.5 mmol/L (3.5-5.1) Chloride Level 107 mmol/L (98-107) Carbon Dioxide Level 32 mmol/L (21-32) Anion Gap 5 (6-14) Blood Urea Nitrogen 9 mg/dL (8-26) Creatinine 0.6 mg/dL (0.7-1.3) Estimated GFR (Cockcroft-Gault) 137.0 Glucose Level 87 mg/dL (70-99) Calcium Level 8.3 mg/dL (8.5-10.1) Magnesium Level 2.3 mg/dL (1.8-2.4) Vancomycin Level Trough 15.4 mcg/mL (10.0-20.0) Vancomycin Last Dose Date Vancomycin Last Dose Time 170 Laboratory Tests Test 05/17/20 03:55 Vancomycin Level Trough 15.4 mcg/mL (10.0-20.0) Vancomycin Last Dose Date Vancomycin Last Dose Time 1700 Problem List Problems Medical Problems: (1) Decubitus ulcer of right buttock, stage 4 Status: Acute (2) Wound of right buttock Status: Acute Assessment/Plan agree with plans to consider transfer to plastics and previous surgeon If arrangements not able to be made will consider revision of colostomy. Will d/w wound care. Justicifation of Admission Dx: Justifications for Admission: Justification of Admission Dx: Yes Sepsis: Failure of Out Pt Tx AKRAN UGALDE MD May 17, 2020 20:02
[2020-05-17] MEDS: TEMAZEPAM 15 MG CAPSULE PO SCH (21:03)
[2020-05-17] MEDS: ATORVASTATIN CALCIUM 20 MG TABLET PO SCH (21:03)
[2020-05-17] MEDS: LORazepam 0.5 MG TABLET PO PRN (21:03)
[2020-05-17] MEDS: diphenhydrAMINE HCL 25 MG CAPSULE PO PRN (21:03)
[2020-05-17] MEDS: QUEtiapine 100 MG TABLET. PO SCH (21:04)
[2020-05-17] MEDS: PRAMIPEXOLE 0.25 MG TABLET. PO SCH (21:04)
[2020-05-17] MEDS: ENOXAPARIN 40 MG/0.4 ML SYRINGE. SQ SCH (21:07)
--- NOTE | 2020-05-17 22:57 | NUR ---
Patient came in to [place] from [facility]. Patient has a suprapubic catheter in place. Drainage bag was leaking yesterday on 05/16/20 and was changed. Unknown when suprapubic catheter was changed but patient states with the last 30 days. Will continue to monitor status and check with doctors about changing catheter as needed.
[2020-05-17 23:00] VITALS: BP 95/57
[2020-05-17] MEDS ORDERED: fentaNYL 100MCG/HR PATCH 1 PATCH PATCH TD SCH (23:00)
[2020-05-18] VITALS (7 sets, daily range): BP systolic 97–132; BP diastolic 54–75
[2020-05-18] MEDS: MEROPENEM 500 MG in IV NORMAL SALINE 50ML 50 ML IV SCH ×4 (00:09→18:32)
[2020-05-18] MEDS: HYDROmorphone 2 MG/ML VIAL IV PRN ×11 (00:19→22:46)
[2020-05-18] MEDS: VANCOMYCIN 1 GM in IV NORMAL SALINE 250ML 250 ML IV SCH ×2 (04:31→17:18)
[2020-05-18] MEDS: PANTOPRAZOLE 40 MG TABLET.DR. PO SCH (06:32)
[2020-05-18] MEDS: SENNOSIDES 8.6 MG TABLET PO SCH (09:00)
[2020-05-18] MEDS: amLODIPine BESYLATE 5 MG TABLET PO SCH (09:00)
--- NOTE | 2020-05-18 09:21 | PDOC ---
SURGICAL PROGRESS NOTE DATE: 05/18/20 TIME: 09:17 Subjective just woke up some pain today to sacral wound DPOA present--would prefer not to go to [facility] if possible--here is closer, previous unpleasant experience Vital Signs Vital Signs Date Time Temp Pulse Resp B/P (MAP) Pulse Ox O2 Delivery O2 Flow Rate FiO2 05/18/20 07:03 20 Room Air 05/18/20 07:00 97.2 67 97/54 (68) 88 97.2 05/17/20 18:03 2.0 I&O Intake and Output 05/18/20 07:00 Intake Total 2190 ml Output Total 1950 ml Balance 240 ml Intake Oral 2190 ml Output Urine Total 1950 ml General: Alert, Cooperative Abdomen: Soft, Other (prolapsed stoma ) Labs Laboratory Tests Test 05/17/20 03:55 Vancomycin Level Trough 15.4 mcg/mL (10.0-20.0) Vancomycin Last Dose Date Vancomycin Last Dose Time 1700 Problem List Problems Medical Problems: (1) Decubitus ulcer of right buttock, stage 4 Status: Acute (2) Wound of right buttock Status: Acute Assessment/Plan will review with Dr Flores Justicifation of Admission Dx: Justifications for Admission: Justification of Admission Dx: Yes Sepsis: Failure of Out Pt DIANE Juan APRN May 18, 2020 09:21
[2020-05-18] MEDS: CYCLOBENZAPRINE 10 MG TABLET. PO SCH ×3 (09:26→20:35)
[2020-05-18] MEDS: DIVALPROEX EXTENDED RELEASE 500 MG TAB.ER.24H. PO SCH (09:27)
[2020-05-18] MEDS: FERROUS SULFATE 325 MG TABLET. PO SCH (09:27)
[2020-05-18] MEDS: LACTOBACILLUS RHAMNOSUS GG 1 CAPSULE. PO SCH ×2 (09:27→20:35)
[2020-05-18] MEDS: TAMSULOSIN 0.4 MG CAP.ER.24H. PO SCH (09:27)
[2020-05-18] MEDS: POTASSIUM CHLORIDE 10 MEQ TABLET.ER. PO SCH (09:27)
[2020-05-18] MEDS: FUROSEMIDE 80 MG TABLET. PO SCH ×2 (09:27→20:35)
[2020-05-18] MEDS: MORPHINE ER 15 MG TABLET.ER PO SCH ×2 (09:27→20:35)
[2020-05-18] MEDS: GABAPENTIN 400 MG CAPSULE. PO SCH ×3 (09:28→20:36)
[2020-05-18] MEDS: DULoxetine HCL 30 MG CAPSULE.DR PO SCH (09:28)
[2020-05-18] MEDS: NYSTATIN TOPICAL POWDER 15GM BOTTLE. TP SCH ×2 (09:32→20:34)
--- NOTE | 2020-05-18 09:33 | NUR ---
KIRILL following. Discussed with RN, pt from [facility], room air, cardiac diet. Pt needing transfer to plastics for abdominal reconstruction. KIRILL initiated transfer. KIRILL will continue to follow. Addendum: 05/18/20 at 1225 by NICHOLE ROY [facility] declined inpatient transfer due to bed capacity. [facility] advised a request for transfer could be tried again tomorrow morning (05/19/2020). KIRILL notified RN and Dr. Gonzales. KIRILL left voicemail for Wil at [facility], requesting call back. KIRILL will continue to follow.
[2020-05-18] MEDS: VANCOMYCIN PER PHARMACY MC PRN (11:13)
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
--- NOTE | 2020-05-18 17:30 | NUR ---
Wound Care Wound Type/Assessment: Pt known to wound clinic where he is being treated for pressure ulcers to R buttock and sacrum. Wounds present in chart, measured this date. Pt potentially discharging to for repair of prolapsed ostomy, and possible flap surgery for pressure ulcers. At this time pt is unsure if he would prefer a flap or surgical debridement. Treatment Recommendations/Plan: Hydrofera blue Ready to both pressure ulcers, covered with foam dressings. Awaiting details from care team regarding [facility] transfer Education provided: Pt had many questions regarding the differences between a flap surgery (which he has had in the remote past), and an OR debridement. Left information on the board for his tilesetter to call the clinic if she has questions about or recommendations Offloading surface/device: P500 bed, pillows for positioning and comfort, pt able to self turn although he needs reminding Recommended Referrals/Tests: [facility] for possible flap, may follow up in clinic Discharge Recommendations for dressings: continue HFBR, wound vac not recommended yet.
[2020-05-18] MEDS: TEMAZEPAM 15 MG CAPSULE PO SCH (20:34)
[2020-05-18] MEDS: DICLOFENAC SODIUM 1% TOPICAL GEL 100GM TUBE. TP SCH (20:34)
[2020-05-18] MEDS: ENOXAPARIN 40 MG/0.4 ML SYRINGE. SQ SCH (20:34)
[2020-05-18] MEDS: LORazepam 0.5 MG TABLET PO PRN (20:34)
[2020-05-18] MEDS: PRAMIPEXOLE 0.25 MG TABLET. PO SCH (20:35)
[2020-05-18] MEDS: ATORVASTATIN CALCIUM 20 MG TABLET PO SCH (20:35)
[2020-05-18] MEDS: QUEtiapine 100 MG TABLET. PO SCH (20:36)
[2020-05-18] MEDS: NYSTATIN 100,000 UNIT/GM TOPICAL CREAM 15GM TUBE. TP SCH (20:36)
[2020-05-19] MEDS: MEROPENEM 500 MG in IV NORMAL SALINE 50ML 50 ML IV SCH ×3 (00:13→12:00)
[2020-05-19 03:00] VITALS: BP 106/64
[2020-05-19] MEDS: VANCOMYCIN 1 GM in IV NORMAL SALINE 250ML 250 ML IV SCH (04:33)
[2020-05-19] MEDS: HYDROmorphone 2 MG/ML VIAL IV PRN ×2 (05:28→10:15)
[2020-05-19 05:43] LABS: CREATININE 0.7 mg/dL (0.7-1.3); GFR 114.6
[2020-05-19 07:00] VITALS: BP 106/70
--- NOTE | 2020-05-19 08:56 | PDOC ---
SURGICAL PROGRESS NOTE DATE: 05/19/20 TIME: 08:54 Subjective resting, did not awaken possible [facility] tx for plastics and surgeon there will be available if needed Vital Signs Vital Signs Date Time Temp Pulse Resp B/P (MAP) Pulse Ox O2 Delivery O2 Flow Rate FiO2 05/19/20 07:00 96.6 70 18 106/70 (82) 93 Room Air 96.6 I&O Intake and Output 05/19/20 06:59 Intake Total 1260 ml Output Total 2900 ml Balance -1640 ml Intake Oral 560 ml IV Total 700 ml Output Urine Total 2900 ml # Bowel Movements 1 Labs Laboratory Tests Test 05/19/20 04:30 05/19/20 08:17 Creatinine 0.7 mg/dL (0.7-1.3) Estimated GFR (Cockcroft-Gault) 114.6 Glucose (Fingerstick) 82 mg/dL (70-99) Laboratory Tests Test 05/19/20 04:30 05/19/20 08:17 Creatinine 0.7 mg/dL (0.7-1.3) Estimated GFR (Cockcroft-Gault) 114.6 Glucose (Fingerstick) 82 mg/dL (70-99) Problem List Problems Medical Problems: (1) Decubitus ulcer of right buttock, stage 4 Status: Acute (2) Wound of right buttock Status: Acute Justicifation of Admission Dx: Justifications for Admission: Justification of Admission Dx: Yes Sepsis: Failure of Out Pt Tx DIANE ART APRN May 19, 2020 08:56
[2020-05-19] MEDS: NYSTATIN 100,000 UNIT/GM TOPICAL CREAM 15GM TUBE. TP SCH (09:00)
[2020-05-19] MEDS: NYSTATIN TOPICAL POWDER 15GM BOTTLE. TP SCH (09:00)
[2020-05-19] MEDS: DULoxetine HCL 30 MG CAPSULE.DR PO SCH (09:30)
[2020-05-19] MEDS: TAMSULOSIN 0.4 MG CAP.ER.24H. PO SCH (09:30)
[2020-05-19] MEDS: SENNOSIDES 8.6 MG TABLET PO SCH (09:30)
[2020-05-19] MEDS: GABAPENTIN 400 MG CAPSULE. PO SCH (09:30)
[2020-05-19] MEDS: PANTOPRAZOLE 40 MG TABLET.DR. PO SCH (09:30)
--- NOTE | 2020-05-19 09:30 | SNU/HH DC ---
DISCHARGE ORDERS DISCHARGE INFORMATION: FINAL DIAGNOSIS Problems Medical Problems: (1) Decubitus ulcer of right buttock, stage 4 Status: Acute (2) Wound of right buttock Status: Acute CONDITION ON DISCHARGE: Stable CODE STATUS: Code Status: Full NURSING HOME: SNF STAY <30 DAYS: No HOSPICE: HOSPICE: No HOSPICE EVAL & TREAT: No LTAC: ADMIT TO LTAC: No POST DISCHARGE ORDERS: ACTIVITY ORDERS: Activity as tolerated WEIGHT BEARING STATUS: Non weight bearing BATHING ORDERS: No Tub Bath until see DIET AFTER DISCHARGE: Cardiac CHECKS AFTER DISCHARGE: CHECKS AFTER DISCHARGE: Check blood press - daily TREATMENT/EQUIPMENT ORDERS: ADAPTIVE EQUIPMENT NEEDED: Sliding board, Wheelchair DISCHARGE MEDICATIONS: Home Meds Active Scripts Morphine Sulfate Er (MS CONTIN) 30 Mg Tablet.er, 15 MG PO Q12HR, #60 TAB 0 Refills Prov:NOMAN NUNES MD 02/16/15 Oxycodone Hcl (OXYCODONE HCL IMMED.RELEASE ) 30 Mg Tablet, 1 TAB PO QID PRN for PAIN, #80 TAB 0 Refills Prov:NOMAN NUNES MD 02/16/15 Temazepam (TEMAZEPAM) 30 Mg Capsule, 1 CAP PO QHS, #30 CAP 0 Refills Prov:NOMAN NUNES MD 02/16/15 Fentanyl (FENTANYL 100mcg/hr) 1 Each Patch.td72, 1 PATCH TP Q3DAYS, #10 PATCH 0 Refills last dose 02/03 Prov:NOMAN NUNES MD 02/16/15 Cyclobenzaprine Hcl (CYCLOBENZAPRINE HCL) 10 Mg Tablet, 1 TAB PO TID, #90 TAB 0 Refills Prov:NOMAN NUNES MD 02/16/15 Reported Medications Potassium Chloride (KLOR-CON 10) 10 Meq Tablet.er, 10 MEQ PO DAILY, TAB 02/05/15 Pramipexole Di-Hcl (PRAMIPEXOLE DIHYDROCHLORIDE) 0.125 Mg Tablet, 0.125 MG PO DAILY 07/22/14 Quetiapine Fumarate (QUETIAPINE FUMARATE) 100 Mg Tablet, 150 MG PO HS, TAB 07/22/14 Tamsulosin Hcl (TAMSULOSIN HCL) 0.4 Mg Cap.er.24h, 0.8 MG PO DAILY, TAB 07/22/14 Sennosides (SENNA LAX) 8.6 Mg Tablet, 8.6 MG PO 07/22/14 Pantoprazole Sodium (PANTOPRAZOLE SODIUM ) 40 Mg Tablet.dr, 1 TAB PO DAILY, #30 TAB 3 Refills 07/22/14 Multivitamin (MULTIVITAMINS) 1 Each Capsule, 1 EACH PO 07/22/14 Lactobacillus Acidophilus (ACIDOPHILUS LACTOBACILLUS) 1 Each Capsule, 1 EACH PO 07/22/14 Guaifenesin (GUAIFENESIN) 600 Mg Tablet.er, 1200 MG PO 07/22/14 Gabapentin (GABAPENTIN) 800 Mg Tablet, 1 TAB PO TID, #90 TAB 3 Refills 07/22/14 Furosemide (FUROSEMIDE) 80 Mg Tablet, 80 MG PO BID, TAB 07/22/14 Ferrous Sulfate (FERROUS SULFATE) 325 Mg Tablet, 1 TAB PO DAILY, #30 TAB 3 Refills 07/22/14 Duloxetine Hcl (DULOXETINE HCL) 60 Mg Capsule.dr, 60 MG PO DAILY, CAP 07/22/14 Divalproex Sodium (DIVALPROEX SODIUM ER) 500 Mg Tab.er.24h, 500 MG PO DAILY, TAB.SR 07/22/14 Diphenhydramine Hcl (DIPHENHYDRAMINE HCL) 25 Mg Tablet, 25 MG PO TID PRN PRN for ITCHING, TAB 07/22/14 Cholecalciferol (Vitamin D3) (D3-2000) 2,000 Unit Capsule, 2000 UNIT PO 07/22/14 Atorvastatin Calcium (ATORVASTATIN CALCIUM) 20 Mg Tablet, 1 TAB PO HS, #30 TAB 5 Refills 07/22/14 Amlodipine Besylate (AMLODIPINE BESYLATE) 5 Mg Tablet, 1 TAB PO DAILY, #30 TAB 5 Refills 07/22/14 ALEX BENITEZ III DO May 19, 2020 09:30
[2020-05-19] MEDS: CYCLOBENZAPRINE 10 MG TABLET. PO SCH (09:31)
--- NOTE | 2020-05-19 09:31 | PDOC ---
Infectious Disease Note Subjective Subjective feeling ok, cont to c/o pain ROS ROS no n/v/d/sob or fever Vital Sign Vital Signs Vital Signs Date Time Temp Pulse Resp B/P (MAP) Pulse Ox O2 Delivery O2 Flow Rate FiO2 05/19/20 07:00 96.6 70 18 106/70 (82) 93 Room Air 96.6 Physical Exam PHYSICAL EXAM CONSTITUTIONAL: He is lying in bed. He is cooperative. He is in no acute distress. HEENT: His pupils are equal and reactive. He has got some ecchymosis about his left eye. Oral cavity, pharynx was clear. NECK: Supple, no JVD. LUNGS: Decreased in the bases. HEART: S1, S2. ABDOMEN: Soft, nontender, no guarding, no rebound. He has an ostomy with a stomal hernia and prolapse colon. Intestines appeared to be healthy pink appearing. Sacrococcygeal wound is all the way to the bone. The right ischial wound is clean but not to the bone. there is no necrotic or gangrenous tissue apparent. Suprapubic catheter is in place. EXTREMITIES: He has bilateral lower extremity amputations. SKIN: Warm to touch without generalized signs of rash. NEUROLOGIC: He answers questions and moves his extremities. PSYCHIATRIC: Affect is flat. Labs Lab Laboratory Tests Test 05/19/20 04:30 05/19/20 08:17 Creatinine 0.7 mg/dL (0.7-1.3) Estimated GFR (Cockcroft-Gault) 114.6 Glucose (Fingerstick) 82 mg/dL (70-99) Micro Microbiology 05/16/20 Blood Culture - Preliminary, Resulted NO GROWTH AFTER 3 DAYS Objective Assessment Buttock wound - chronic H/o Acinetobacter Schizophrenia CAD L eye echymosis - denies know injury - vision ok Plan Plan of Care this wound at rt [place] is clen , not to bone clinically coccygeal wound is clean to bone, chronic On discussion with the patient about he does not need any IV antibiotics right now because even with IV antibiotics is not going to heal patient needs to go through wound care center to be able to get to plastics for flap surgery as only way this is going to get better Patient clearly understood he is going to have [place] [facility] make appointment at the wound care center Process explained to him in detail also discussed with Dr. Gonzales D/w ENRIQUETA Lam MD May 19, 2020 09:31
[2020-05-19] MEDS: LACTOBACILLUS RHAMNOSUS GG 1 CAPSULE. PO SCH (09:33)
[2020-05-19] MEDS: FERROUS SULFATE 325 MG TABLET. PO SCH (09:33)
[2020-05-19] MEDS: POTASSIUM CHLORIDE 10 MEQ TABLET.ER. PO SCH (09:33)
[2020-05-19] MEDS: DIVALPROEX EXTENDED RELEASE 500 MG TAB.ER.24H. PO SCH (09:35)
[2020-05-19] MEDS: MORPHINE ER 15 MG TABLET.ER PO SCH (09:35)
[2020-05-19] MEDS: VANCOMYCIN PER PHARMACY MC PRN (09:41)
[2020-05-19] MEDS: amLODIPine BESYLATE 5 MG TABLET PO SCH (09:44)
[2020-05-19] MEDS: DICLOFENAC SODIUM 1% TOPICAL GEL 100GM TUBE. TP SCH (09:45)
[2020-05-19] MEDS: FUROSEMIDE 80 MG TABLET. PO SCH (09:45)
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
[2020-05-19 11:00] VITALS: BP 108/71
--- NOTE | 2020-05-19 11:52 | NUR ---
Refused Covid swab stated "I don"t have it.
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
--- NOTE | 2020-05-19 12:02 | NUR ---
Pt has no signs or symptoms of Covid-19. No sore throat, no fever, no coughing. Pt refused covid swab.
--- NOTE | 2020-05-19 12:11 | NUR ---
This patient's temperature increased no more than 99.6 his entire visit.
--- NOTE | 2020-05-19 12:45 | NUR ---
Pt escorted out via his own wheelchair with transportation from [facility]. Gave report to Zachary STEINER over the phone. Pt on his way IV discontinued, patient tolerating well in wheelchair with all belongings.
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
--- NOTE | 2020-05-28 14:41 | NUR ---
KIRILL received call back from Dione BUSTAMANTE) at [facility]. Dione advised the pt has guardian (Komal) and a separate conservator. Per Dione, the conservator has been working to complete the medicaid application, as pt has been [facility] private pay. Dione reported Komal has been trying to have pt moved for a while now, but when they speak with the patient, he does not want to move. Dione stated pt sometimes goes back and forth with what Komal says but at the end of the day and the discussion Dione has with pt, he does not want to transfer. Dione reported the conservator and guardian, Komal both have decision making abilities, but the pt is cognitively intact and can make his own decisions.
== END 2020-05-19 12:44 | DRG 592 ==
LOC: ER 12:29 → 4 NORTH 15:22
PROVIDERS: ADMIT Internal Medicine; ATTEND Internal Medicine
DX: L89.314 Pressure ulcer of right buttock, stage 4 (principal); J18.9 Pneumonia, unspecified organism; E43 Unspecified severe protein-calorie malnutrition; M86.10 Other acute osteomyelitis, unspecified site; Z68.43 Body mass index [BMI] 50.0-59.9, adult; E11.69 Type 2 diabetes mellitus with other specified complication; D64.9 Anemia, unspecified; E78.00 Pure hypercholesterolemia, unspecified; E78.5 Hyperlipidemia, unspecified; E87.6 Hypokalemia; F25.9 Schizoaffective disorder, unspecified; F32.9 Major depressive disorder, single episode, unspecified; G89.29 Other chronic pain; I11.0 Hypertensive heart disease with heart failure; I25.10 Atherosclerotic heart disease of native coronary artery without angina pectoris; I50.9 Heart failure, unspecified; K21.9 Gastro-esophageal reflux disease without esophagitis; K43.5 Parastomal hernia without obstruction or gangrene; K59.00 Constipation, unspecified; K63.4 Enteroptosis; L89.159 Pressure ulcer of sacral region, unspecified stage; N40.0 Benign prostatic hyperplasia without lower urinary tract symptoms; S00.12XA Contusion of left eyelid and periocular area, initial encounter; S31.819A Unspecified open wound of right buttock, initial encounter; Z82.49 Family history of ischemic heart disease and other diseases of the circulatory system; Z87.891 Personal history of nicotine dependence; Z89.512 Acquired absence of left leg below knee; Z89.611 Acquired absence of right leg above knee; Z93.3 Colostomy status; Z95.1 Presence of aortocoronary bypass graft; Z86.14 Personal history of Methicillin resistant Staphylococcus aureus infection; Z88.8 Allergy status to other drugs, medicaments and biological substances; Z79.899 Other long term (current) drug therapy; Z20.828 Contact with and (suspected) exposure to other viral communicable diseases
CPT/HCPCS: 36415; 51702; 70450; 70486; 74176; 80048; 80053; 80202; 82565; 82962; 83605; 83735; 85025; 86140; 87040; 96365; 99285; J1170; J1650; J2185; J2543; J3370; J3480; J7040; J7050; G0378; J7030; Q0163; U0003-CS